=== PATIENT | male | born 1980 | race Caucasian/White ===

== ENCOUNTER → 2016-05-04 16:20 | Emergency (ER) | payer OTHER ==
[~2016-05-04 16:20] MED LIST: ADDERALL
== END | disposition home or self-care (01) ==
LOC: SED 16:20
DX: Z76.0 Encounter for issue of repeat prescription (principal); F41.9 Anxiety disorder, unspecified; F90.9 Attention-deficit hyperactivity disorder, unspecified type; F17.210 Nicotine dependence, cigarettes, uncomplicated
CPT/HCPCS: 99282